=== PATIENT | male | born 1970 | race American Indian/Alaskan Native ===

== ENCOUNTER 2021-06-29 13:15 | Emergency (ER) | payer SELFPAY ==
[2021-06-29] MEDS ORDERED: SODIUM CHLORIDE 0.9% 1000 ML 1,000 ML IV ONE (17:59)
[2021-06-29] MEDS ORDERED: CYCLOBENZAPRINE 10 MG TAB PO ONE (17:59)
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
[2021-06-29] MEDS ORDERED: LORazepam 2 MG/ML VIAL ONE (18:07)
--- NOTE | 2021-06-29 18:15 | XRay Report ---
CHEST 2 VIEWS INDICATION / CLINICAL INFORMATION: hypertensive emergency. COMPARISON: None available. FINDINGS: SUPPORT DEVICES: None. HEART / MEDIASTINUM: No significant abnormality. LUNGS / PLEURA: No significant pulmonary or pleural abnormality. No pneumothorax. ADDITIONAL FINDINGS: No significant additional findings. IMPRESSION: 1. No acute findings. Signer Name: Alfonso Mayorga MD Signed: 06/29/2021 6:11 PM Workstation Name: [id number]
[2021-06-29 18:35] LABS: Hematocrit 39.4 % (35.5-45.6); Hemoglobin 12.4 gm/dl (11.8-15.2); Mean Corpuscular HGB Conc 32 % (32-34); Mean Corpuscular Volume 80 fl (84-94); Platelet Count 219 K/mm3 (140-440)
[2021-06-29 18:42] LABS: BUN/Creatinine Ratio 10; Blood Urea Nitrogen 8 mg/dL (9-20); Calcium 9.6 mg/dL (8.4-10.2); Hemolysis Index 9
[2021-06-29 18:44] LABS: INR 0.89 (0.87-1.13)
[2021-06-29 18:45] LABS: Partial Thromboplastin Time 27.2 Sec. (24.2-36.6)
--- NOTE | 2021-06-29 19:05 | Cat Scan Report ---
CT head/brain wo con INDICATION / CLINICAL INFORMATION: 51 years Male; hypertensive emergency + SARABIA. TECHNIQUE: Routine CT head without contrast. All CT scans at this location are performed using CT dos e reduction for ALARA by means of automated exposure control. COMPARISON: None. FINDINGS: BRAIN / INTRACRANIAL CONTENTS: The brain parenchyma appears to demonstrate appropriate attenuation fo r age. This mild asymmetry of the lateral ventricles which is felt to be developmental. No focal obst ructing lesions are identified. There appears be mild cerebral atrophy. There is no clear CT evidence of acute intracranial hemorrhage or significant mass effect. ORBITS: No significant abnormality of visualized orbits. SINUSES / MASTOIDS: No significant abnormality in the visualized paranasal sinuses or mastoid air katt ls. CRANIOCERVICAL JUNCTION: No significant abnormality. ADDITIONAL FINDINGS: None. IMPRESSION: 1. There is no clear CT evidence of acute intracranial process. Signer Name: Yan Tijerina MD Signed: 06/29/2021 6:38 PM Workstation Name: [id number]
[2021-06-29] MEDS ORDERED: POTASSIUM CHLORIDE ER 20 MEQ TAB PO ONE (19:33)
[2021-06-29] MEDS ORDERED: KETOROLAC 30 MG/1 ML INJ IV ONE (19:40)
[2021-06-29 20:05] VITALS: BP 174/105
[2021-06-30 02:18] LABS: Basophils % (Manual) 0 % (0.0-1.8); Total Cells Counted 100
[2021-06-30 02:19] LABS: Hypochromasia 1+
[2021-06-30 02:20] LABS: Anisocytosis 1+
[2021-06-30 02:21] LABS: Platelet Estimate Consistent w Auto; Target Cells Rare
--- NOTE | 2021-06-30 08:51 | Electrocardiograph Report ---
[facility] Test Date: 2021-06-29 Test Time: 20:08:46 Pat Name: QAMAR DENT Department: Room: Gender: M [employer]at [employer]iner Lock[employer]ch: CANDE : 1970 Requested By: ELIN CROCKETT Order Number: [id number] Reading MD: Grzegorz Ortega Measurements Intervals [place] Rate: 44 P: 73 CA: 149 QRS: 67 QRSD: 82 T: 24 QT: 476 QTc: 406 Interpretive Statements Sinus bradycardia Consider left ventricular hypertrophy nonspecific st-t No previous ECG available for comparison Electronically Signed On 06-30-2021 8:51:21 EST by Grzegorz Ortega
== END 2021-06-29 21:36 | disposition home or self-care (01) ==
LOC: ED 13:15
DX: S39.012A Strain of muscle, fascia and tendon of lower back, initial encounter (principal); R51.9 Headache, unspecified; I16.0 Hypertensive urgency; E87.6 Hypokalemia; I10 Essential (primary) hypertension; J45.909 Unspecified asthma, uncomplicated; V49.49XA Driver injured in collision with other motor vehicles in traffic accident, initial encounter; Y93.89 Activity, other specified; Y92.89 Other specified places as the place of occurrence of the external cause; Y99.8 Other external cause status
CPT/HCPCS: 36415; 70450; 71046; 80048; 84484; 85007; 85025; 85610; 85730; 93005; 93010; 96361; 96374; 99284; J1885; J2060; J7030; Q0162